=== PATIENT | male | born 1950 | race Caucasian/White ===

== ENCOUNTER 2024-10-23 10:10 | Day surgery (SDC) | payer MEDICARE, SELFPAY ==
[2024-10-20 10:05] VITALS: BMI 35.0
[2024-10-20 10:36] LABS: Hematocrit 42.2 % (39.0-52.0); Hemoglobin 14.1 g/dL (13.0-18.0); Mean Corp Hgb Conc. 33.4 g/dL (33.0-37.0); Mean Corpuscular Volume 91.5 fL (80.0-94.0); Nucleated Red Blood Cells % 0 % (-); Platelet Count 241 10^3/uL (130-400); Red Cell Dist. Width 13.0 % (11.5-14.5)
[2024-10-20 10:46] LABS: INR 1.22; PT 15.7 Sec (11.4-14.6)
[2024-10-20 10:50] LABS: ALT (SGPT) 120 U/L (0-50); AST (SGOT) 71 U/L (17-59); Albumin 4.2 g/dl (3.5-5.0); Alkaline Phosphatase 96 U/L (38-126); Blood Urea Nitrogen 14 mg/dl (9-20); Calcium 8.8 mg/dl (8.4-10.2); Carbon Dioxide 26 mmol/L (22-30); Chloride 105 mmol/L (98-107); Estimated Creatinine Clearance 93 ml/min; Glucose 99 mg/dl (70-99); Magnesium 2.1 mg/dl (1.6-2.3); Sodium 136 mmol/L (135-145); Total Protein 6.6 g/dl (6.3-8.2); eGFR > 60.00
[2024-10-20 10:55] LABS: Potassium 4.4 mmol/L (3.5-5.1)
[2024-10-23] VITALS (17 sets, daily range): BP systolic 89–112; BP diastolic 56–70; BMI 35.0
[2024-10-23 14:42] LABS: ACT-LR - POC 366 Seconds (116-155)
--- NOTE | 2024-10-23 15:43 | ITS.CL.ABL ---
[facility] Consultant - Ablation
Ablation
Procedure Report:
ELECTROPHYSIOLOGY ABLATION STUDY
DATE:: October 23, 2024�����������������������������REFERRING: Dr. Dominguez
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
HISTORY: See H and P.��As above
ANTIARRHYTHMIC DRUG: Amiodarone
PRE-PROCEDURE GUANACO: No intracardiac thrombus on intracardiac ultrasound
PRESENTING RHYTHM: A-fib
'TIME-OUT':��called and confirmed.
SEDATION/ANESTHESIA:��provided via the anesthesia department using general anesthesia (LMA).
INTRAVENOUS/ARTERIAL ACCESS:
Right femoral venous - 8Fr
Left femoral venous - 8 Fr, 6 Fr
Ultrasound guidance for bilateral femoral vein access was utilized by me to obtain access with demonstration of normal anatomy
CHADS-VASC Score:
HAS-Bled Score
PROCEDURE:
1.��A decapolar CS catheter was placed within the CS for mapping and pacing.��This was also used as the reference catheter for the 3-D map.
2. The intracardiac ultrasound catheter was positioned in the RA to identify the FO for targeting of transseptal puncture, assist��in identification of the pulmonary vein ostia, monitoring pre and post ablation pulmonary vein flow velocities,
monitoring for 'bubble' formation during RF application as a sign of thermal injury,��and to monitor for pericardial effusion during mapping and ablation procedure.���Left atrial size, LV ejection fraction, and pulmonary vein flows were monitored
pre and post ablation procedure. The left ventricular ejection fraction was diminished preablation at 30% and in sinus rhythm postconversion was 30 to 35%. The other valves were inspected and found to be free of significant regurgitation or
stenosis.
3.��Half of the calculated heparin bolus was administered prior to the first transeptal puncture.��Transseptal puncture was performed to diagnose RA and LA pressure so that safety of LA mapping and ablation could be further assessed, and to access
the left atrium and pulmonary veins for mapping and ablation.��This entailed advancing an 16.8 Cameroonian sheath RF wire with dilator into the superior vena cava and withdrawing both (monitoring intracardiac ultrasound, fluoroscopy and tip pressure)
with the tip oriented toward the atrial septum.��The fossa ovalis was engaged (indicated by sudden displacement of the sheath tip as well as tenting of the fossa seen on intracardiac ultrasound).��Left atrial access required a pass with the
Brockenbrough needle extended.��Left atrial catheter position was confirmed by pressure monitoring (RA mean pressure 8 mm Hg and LA mean pressure 20 mm Hg), LA saturation (99%),��as well as fluoroscopy.��The sheath was advanced over the dilator and
positioned in the left atrium.��This procedure was repeated for the Agilis sheath.��The remainder of the calculated heparin bolus was administered and heparin was
infused to maintain ACT at 300 -350 seconds throughout the case.
4.��RA pacing was performed via the proximal decapolar poles and LA pacing was performed via the distal decapolr poles.
5. A quadrapolar catheter was first positioned at the His position for His Bundle recording which was tagged via the 3-D Navex sytem, and then passed to the RVA for RV pacing and recording.
6. The grid and Penta spline LIPV, LSPV, RSPV and the RIPV.��
7.��Next, a 3-D map was created using Navex.���A 3-D reconstructed CT image was compared to the 3-D Navex map to assist in anatomic interpretation, mapping and ablation.��The CT image and the NavX image were fused.
8. 58 lesions were given in all of in basket pose to the pulmonary veins and in flower pose to the roof posterior wall and floor of the left atrium. In all of in basket pose entrance block was achieved in all 4 pulmonary veins yet atrial
fibrillation persisted. Flower lesions to the roof posterior wall and floor in a roof and floor line were given leading to entrance block and electrical silence of the roof posterior wall floor of the left atrium. He had a pre-A-fib persisted so
we cardioverted with 1 300 J synchronized biphasic shock and reconfirmed entrance and exit block. EP study postconversion did not demonstrate any other tachyarrhythmia.
9. Normal sinus node and AV node function noted.
TOTAL RF DURATION: 14.1 minutes
REVERSAL OF HEPARIN: 30 mg of protamine, slow IV administration
COMPLICATIONS:
None
Intracardiac US shows no pericardial effusion post ablation.
SUMMARY:��
Complex left atrial mapping and ablation.
Isolation of all 4 pulmonary veins in the posterior wall as above.
RECOMMENDATIONS:
1. Admit for IV Lasix and plan discharge on October 24
2. Resume anticoagulation
3.��Continue amiodarone for 1 to 3 months and repeat echocardiogram in 3 months
4.��Anticipate discharge in October 24
Copy to: Dr. Dominguez
[2024-10-23] MEDS: LASIX 20 MG IV (16:01)
--- NOTE | 2024-10-23 17:34 | PTCARENOTE ---
Rec'd pt from labor custodian. Tele- SR. HR 50-60s. B/l groin sites are c/d/i w/ fig 8 sutures. No bleeding/hematoma. Activity restrictions reviewed w/ pt and verbalizes understanding. Oriented pt to room. Daughter at bedside. Currently in bed; call martinez
w/in reach.
[2024-10-23] MEDS: NEURONTIN 100 MG PO ×2 (17:43→22:47)
[2024-10-23] MEDS: ZOLOFT 25 MG PO (22:46)
[2024-10-23] MEDS: ELIQUIS 5 MG PO (22:47)
[2024-10-23] MEDS: LIPITOR 40 MG PO (22:47)
[2024-10-23] MEDS: TOPROL XL 25 MG PO (23:01)
--- NOTE | 2024-10-23 23:26 | PTCARENOTE ---
Pt rec'd at change of shift awake,alert on cbr. B/L groin drsg dry and intact. Fig 8 sutures removed without difficulty. No bleeding or hematoma noted. Pt assisted oob 1 hour later. Groin remained intact. Slept in recliner with legs elevated until
HS. B/p at that time 94 systolic , pt asympt. Checked with LONNIE Davidson regarding HS medications with b/p's in 90's. HS Hydralazine held and beta victor hugo given as ordered.
[2024-10-24 05:22] VITALS: BP 102/65
[2024-10-24 05:47] LABS: Hematocrit 39.2 % (39.0-52.0); Hemoglobin 13.2 g/dL (13.0-18.0); Mean Corp Hgb Conc. 33.7 g/dL (33.0-37.0); Mean Corpuscular Volume 90.7 fL (80.0-94.0); Platelet Count 221 10^3/uL (130-400); Red Cell Dist. Width 13.2 % (11.5-14.5)
[2024-10-24 06:15] LABS: Blood Urea Nitrogen 20 mg/dl (9-20); Calcium 9.2 mg/dl (8.4-10.2); Carbon Dioxide 25 mmol/L (22-30); Chloride 105 mmol/L (98-107); Estimated Creatinine Clearance 107 ml/min; Glucose 131 mg/dl (70-99); Magnesium 2.2 mg/dl (1.6-2.3); Potassium 4.5 mmol/L (3.5-5.1); Sodium 135 mmol/L (135-145); eGFR > 60.00
[2024-10-24 07:52] VITALS: BP 99/67
--- NOTE | 2024-10-24 08:17 | W.PN.CARDCBS ---
Addendum entered and electronically signed by Gabino Duncan MD 10/24/24 10:00:
patient seen and examined
agree with BAG MACHINE OPERATOR HELPER note and assessment
agree with BAG MACHINE OPERATOR HELPER plan
exam:
bilateral groin CDI
aao x 3
non focal neurologically
cor regular
clear ctab
73 y/o, presents with AFib, poorly controlled on current medical therapy, complicated by tachycardia induced cardiomyopathy with EF 30-35%. (was 55-60% on 04/2024 echo). [id number]= 4, maintained on eliquis, amiodarone, failed cardioversion.
Progressive symptoms of UREÑA, fatigue. Presents for ablation.
10/23- s/p PFA with isolation of all 4 pulmonary veins
LAPW ablation
LVEF preablation was 30%, and in SR post conversion was 30-35%.
IMPRESSION:
AFib
s/p PFA, LAPW ablation, 10/23/24
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
Bradycardia
CAD
HTN
HLD
MR, TR
Pulm HTN
Mediastinal Lymphadenopathy
DJD
PLAN:
Eliquis
continue amiodarone for 1-3 months post ablation
continue losartan, metoprolol, spironolactone
good response to IV lasix post procedure
Repeat echo in [address] Dominguez as scheduled
home today
Original Note:
Today's Communication / Plan
-
echo in 3 months
followup w/Dr. Dominguez as scheduled
home today
Impression / Plan
-
PCP: Stephani Campbell DO
CDY: Greg Dominguez MD
73 y/o, presents with AFib, poorly controlled on current medical therapy, complicated by tachycardia induced cardiomyopathy with EF 30-35%. (was 55-60% on 04/2024 echo). [id number]= 4, maintained on eliquis, amiodarone, failed cardioversion.
Progressive symptoms of UREÑA, fatigue. Presents for ablation.
10/23- s/p PFA with isolation of all 4 pulmonary veins
LAPW ablation
LVEF preablation was 30%, and in SR post conversion was 30-35%.
IMPRESSION:
AFib
s/p PFA, LAPW ablation, 10/23/24
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
Bradycardia
CAD
HTN
HLD
MR, TR
Pulm HTN
Mediastinal Lymphadenopathy
DJD
PLAN:
Tele- SB/SR w/occasional PAC, no AFib
bilat groin sites stable
resume eliquis last night
continue amiodarone for 1-3 months post ablation
continue losartan, metoprolol, spironolactone
good response to IV lasix post procedure
Repeat echo in [address] Dominguez as scheduled
home today
Progress Note - Crayon Sawyer
Subjective
Date of Service: October 24, 2024
Denies cp/palps/dypsnea
oob ambulating
groin sites without pain
Objective
Labs:
10/24/24 05:31
10/24/24 05:31
Labs
Hgb 13.2 g/dL (13.0-18.0) 10/24/24 05:31
Hct 39.2 % (39.0-52.0) 10/24/24 05:31
Plt Count 221 10^3/uL (130-400) 10/24/24 05:31
PT 15.7 Sec (11.4-14.6) H 10/20/24 10:18
INR 1.22 10/20/24 10:18
Sodium 135 mmol/L (135-145) 10/24/24 05:31
Potassium 4.5 mmol/L (3.5-5.1) 10/24/24 05:31
BUN 20 mg/dl (9-20) 10/24/24 05:31
Creatinine 0.7 mg/dL (0.7-1.3) 10/24/24 05:31
Glucose 131 mg/dl (70-99) H 10/24/24 05:31
Vital Signs and I&O:
Vital Signs
Temp Pulse Resp BP Pulse Ox
97.5 F 60 20 102/65 94
10/24/24 07:53 10/24/24 05:30 10/24/24 07:53 10/24/24 05:22 10/24/24 07:53
Vital Signs
Temp Pulse Resp BP Pulse Ox
97.5 F 60 20 102/65 94
10/24/24 07:53 10/24/24 05:30 10/24/24 07:53 10/24/24 05:22 10/24/24 07:53
Intake & Output
10/22/24 10/23/24 10/24/24 10/25/24
06:59 06:59 06:59 06:59
Intake Total 1940 / 1940
Output Total 950 / 950
Balance 990 / 990
Physical Exam
Physical Exam
AAOx3, MAEE 5/5
RRR S1 S2 no murmurs
CTA bilat, non labored
soft abd, + bs
bilat groin sites without ht/bleeding, non tender
bilat extremities w/palpable distal pulses, no edema
[2024-10-24] MEDS: PACERONE 200 MG PO (08:33)
[2024-10-24] MEDS: ASPIR LOW (ENTERIC COATED) 81 MG PO (08:33)
[2024-10-24 08:34] VITALS: BP 100/76
[2024-10-24] MEDS: ELIQUIS 5 MG PO (08:34)
[2024-10-24] MEDS: NEURONTIN 100 MG PO (08:34)
--- NOTE | 2024-10-24 09:17 | W.DS.TRANS ---
DC Summary - Ginger Farmer
-
Discharge Instructions:
Sleep Apnea Risk High
Discharge Diagnosis/Procedures Atrial fibrillation post ablation
Diet Low Cholesterol,Low Sodium
Driving Restrictions No driving for 24 hours
Specialty Instructions Weigh Daily
Instructions:
Stand-Alone Forms: DC Instructions- Cath/EP Lab
Changes to Home Medications: No
Discharge Medications:
DC Medications w/original date entered in [employer]
amiodarone 200 mg tablet 200 mg PO DAILY 10/23/24
apixaban 5 mg tablet (Eliquis) 5 mg PO BID 10/23/24
aspirin 81 mg tablet,delayed release 81 mg PO DAILY 10/23/24
atorvastatin 40 mg tablet 40 mg PO QPM 10/23/24
gabapentin 100 mg capsule 100 mg PO TID 10/23/24
losartan 25 mg tablet 25 mg PO DAILY 10/23/24
metoprolol succinate 50 mg tablet,extended release 24 hr 25 mg PO HS 10/23/24
sertraline 25 mg tablet (Zoloft) 25 mg PO QPM 10/23/24
spironolactone 25 mg tablet 12.5 mg PO HS 10/23/24
Home Medication Changes
Pending Results: No
[2024-10-24 09:54] VITALS: BP 108/63
--- NOTE | 2024-10-24 10:44 | PTCARENOTE ---
Pt denies any discomfort. Pt seen by Nancy Hyde NP and . Telemetry and IV device removed. Discharge instructions reviewed with pt regarding activity and driving restrictions, wound care, medications and their possible side effects,
reporting cares and concerns and follow up appt's. Very good understanding verbalized. Pt escorted out via wheelchair and discharged to home.
--- NOTE | 2024-10-24 10:48 | CM ---
spoke to pt in room, he is prerv indep, lives alone in a 2 story home with 4 steps to enter. he denies any dc planning needs or dme's. plan is for dc to home when medically stable,
== END 2024-10-24 10:50 | disposition home or self-care (01) ==
LOC: CATH 10:10
PROVIDERS: Nurse Practitioner Adult Health; ATTENDING PHYSICIAN Internal Medicine Cardiovascular Disease; FAMILY PHYSICIAN Family Medicine; OTHER PHYSICIAN Internal Medicine Interventional Cardiology
DX: I48.19 Other persistent atrial fibrillation (principal); I42.9 Cardiomyopathy, unspecified; Z79.82 Long term (current) use of aspirin; Z79.899 Other long term (current) drug therapy; Z79.01 Long term (current) use of anticoagulants; I10 Essential (primary) hypertension; E78.5 Hyperlipidemia, unspecified; I25.10 Atherosclerotic heart disease of native coronary artery without angina pectoris; I27.20 Pulmonary hypertension, unspecified; I47.10 Supraventricular tachycardia, unspecified
CPT/HCPCS: C1732; C1894; C1730; C1892; C1759; C1769; 36415; 75572; 80048; 80053; 83735; 85025; 85027; 85347; 85610; 86850; 86900; 86901; 93005; 93656; 93657; C1733; C1766; Q9967